=== PATIENT | male | born 1990 | race Caucasian/White ===

== ENCOUNTER 2018-04-18 23:30 | Emergency (ER) | payer MEDICAID ==
[2018-04-18 23:38] VITALS: BP 106/61; PULSE 82; RESP 16; TEMP 98.2; O2SAT 96
[2018-04-19] MEDS ORDERED: Naproxen 500 MG TAB PO STA (00:36)
[2018-04-19] MEDS ORDERED: Tdap Vaccine 0.5 ml Vial (10-64 yrs) IM ONE ×2 (00:36→02:17)
[2018-04-19] MEDS ORDERED: Naproxen 500 MG TAB PO ONE (01:28)
--- NOTE | 2018-04-19 01:44 | ED PDOC ---
Upper Extremity Pain/Injury Time Seen by Provider: 04/18/18 23:40 Chief Complaint (Nursing): Finger,Hand,&Wrist Chief Complaint (Provider): Left Hand Lacerations History Per: Patient History/Exam Limitations: no limitations Onset/Duration Of Symptoms: Other (prior to arrival) Current Symptoms Are (Timing): Still Present Additional Complaint(s): 27 y/o male with no significant pmhx, who presents to the ED for evaluation of multiple left hand lacerations which occurred prior to arrival. Patient reports he sustained multiple lacerations to his left hand after he slammed a glass jar with his left hand. He denies numbness, decreased in ROM, and other injuries. Tetanus not UTD. PMD: None provided Past Medical History Reviewed: Historical Data, Nursing Documentation, Vital Signs Vital Signs: Last Vital Signs Temp 98.2 F 04/18/18 23:33 Pulse 82 04/18/18 23:33 Resp 16 04/18/18 23:33 BP 106/61 04/18/18 23:33 Pulse Ox 96 04/18/18 23:33 - Medical History PMH: No Chronic Diseases - Surgical History Surgical History: No Surg Hx - Family History Family History: States: Unknown Family Hx - Immunization History Hx Tetanus Toxoid Vaccination: No - Allergies Allergies/Adverse Reactions: Allergies Allergy/AdvReac Type Severity Reaction Status Date / Time No Known Allergies Allergy Verified 04/18/18 23:33 Review of Systems ROS Statement: Except As Marked, All Systems Reviewed And Found Negative Skin: Positive for: Lesions (multiple left hand lacerations) Neurological: Negative for: Numbness Physical Exam - Reviewed Nursing Documentation Reviewed: Yes Vital Signs Reviewed: Yes - Physical Exam Comments: GENERAL APPEARANCE: Patient is awake, alert, oriented x 3, in no acute distress. SKIN: Warm, dry; 1 cm laceration in the web space between the left 1st and left 2nd digits, 2 cm L shaped laceration to the thenar aspect of the left hand , proximal to previous laceration is a 1 cm laceration, 1 cm jagged laceration to the distal volar aspect of the left 4th digit, 1 cm jagged lac to hypothenar aspect of the left palm proximal to base of left digit EXTREMITIES: FROM, distal cap refill < 2 sec, distal sensation intact in all extremities, (-) deformity, (-) edema. NEURO AND PSYCH: Mental status as above. - ECG O2 Sat by Pulse Oximetry: 96 (RA) Pulse Ox Interpretation: Normal Medical Decision Making Medical Decision Making: Plan : - Tdap IM - XR L hand - Laceration repair XR L hand : no FB, no fracture, as read by QUIANA. Laceration repair done by QUIANA. Patient tolerated the procedure well. Clean dressing applied. Instructed on proper wound care. Advised to follow up with primary care physician or referral provided in 1-2 days without fail. Advised to take medication as prescribed. Instructed to have sutures removed after 7 days. Return to the emergency room at any time for any new or worsening symptoms. Patient states he fully agrees with and understands discharge instructions. States that he agrees with the plan and disposition. Verbalized and repeated discharge instructions and plan. I have given the patient opportunity to ask any additional questions. Scribe Attestation: Documented by Brett Briseno, acting as a scribe for Irina Perez PA-C. Provider Scribe Attestation: All medical record entries made by the Scribe were at my direction and personally dictated by me. I have reviewed the chart and agree that the record accurately reflects my personal performance of the history, physical exam, medical decision making, and the department course for this patient. I have also personally directed, reviewed, and agree with the discharge instructions and disposition. Procedures - Laceration/Wound Repair Left Hand Wound Explored: no foreign body removed Irrigated w/ Saline (ccs): 50 Betadine Prep?: Yes Anesthesia: 1% Lidocaine Volume Anesthetic (ccs): 5 Wound Repaired With: Sutures (5 sutures placed) Suture Size/Type: 5:0, proline Number of Sutures: 5 (used dermabond on web space) Wound Complexity: Simple Sterile Dressing Applied?: Yes Progress: Patient tolerated procedure well without complications. Disposition - Clinical Impression Clinical Impression: Hand laceration - Patient ED Disposition Is Patient to be Admitted: No Counseled Patient/Family Regarding: Studies Performed, Diagnosis, Need For Followup - Disposition Referrals: Edward Gómez MD [Medical Doctor] - Disposition: Routine/Home Disposition Time: 01:40 Condition: STABLE Additional Instructions: Thank you for letting us take care of you today. You were treated for L hand laceration. The emergency medical care you received today was directed at your acute symptoms. Have sutures removed after 7 days. It may take several days for your symptoms to resolve. Return to the Emergency Department if your symptoms worsen, do not improve, or if you have any other problems. Please contact your doctor in 2 days for re-evaluation and follow up / or call one of the physicians/clinics you have been referred to that are listed on the Patient Visit Information form that is included in your discharge packet. Bring any paperwork you were given at discharge with you along with any medications you are taking to your follow up visit. Our treatment cannot replace ongoing medical care by a primary care provider (PCP) outside of the emergency department. Thank you for allowing the [facility] team to be part of your care today. If you had an X-Ray : A Radiologist will review the ED reading if any change in treatment is needed we will contact you. 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
[2018-04-19] MEDS ORDERED: Lidocaine 1% Inj (20ml) ONE (01:56)
[2018-04-19] MEDS ORDERED: Povidone Iodine Topical 10% Sol ONE (01:56)
[2018-04-19] MEDS ORDERED: Lidocaine 1% Inj (20ml) IJ ONE (02:26)
--- NOTE | 2018-04-19 08:47 | RAD ---
PROCEDURE: Left Hand Radiographs. HISTORY: trauma, r/o FB COMPARISON: None. FINDINGS: BONES: Bone alignment and mineralization are normal. There is no acute displaced fracture or bone destruction. JOINTS: Normal. SOFT TISSUES: Normal. No radiopaque foreign body OTHER FINDINGS: None. IMPRESSION: No radiopaque foreign body.
== END 2018-04-19 03:00 | disposition home or self-care (01) ==
LOC: H.ER 23:30
DX: S61.412A Laceration without foreign body of left hand, initial encounter (principal); W25.XXXA Contact with sharp glass, initial encounter